=== PATIENT | female | born 1935 | race Caucasian/White ===

== ENCOUNTER 2019-12-09 17:27 | Emergency (ER) | payer MEDICARE, OTHER, SELFPAY ==
[2019-12-09] VITALS (7 sets, daily range): BP systolic 121–162; BP diastolic 56–94; PULSE 74–96; RESP 14–18; TEMP 36.5; O2SAT 87–97; BMI 25.4
--- NOTE | 2019-12-09 18:15 | W.ED.ABDPA2 ---
HPI - Abdominal Pain General: Chief Complaint: Abdominal Pain Stated Complaint: N/V Time Seen by Provider: 12/09/19 17:54 Source: patient Mode of arrival: ambulatory Limitations: no limitations History of Present Illness: MD elicited complaint: abdominal pain Onset (ago): week(s) (3) Pain Consistency: intermittent Location: Diffuse Severity: severe Quality: cramping Radiation: none Exacerbating factors: nothing Relieving factors: nothing Associated Symptoms: Reports GI cramping, diarrhea, fever(s), nausea and vomiting; Denies anorexia, belching, bloating, change in bowel habits, change in stool character, chills, coffee ground emesis, constipation, dyspepsia, dysuria, excessive flatus, heartburn, hematochezia, hematuria, hematemesis, fecal incontinence, loose stools, melena, poor appetite and syncope Review of Systems General: Reports: 10 or more systems reviewed and unremarkable except in HPI and below Const: Reports: fever(s); Denies: chills Eyes: Denies: change in vision or blurry vision ENMT: Denies: throat pain, enlarged tonsils, odynophagia, hoarseness, mouth pain or swelling of lips/tongue Card: Denies: syncope Resp: Denies: dyspnea, productive cough or non-productive cough GI: Reports: nausea, vomiting, diarrhea and GI cramping; Denies: hematemesis, coffee ground emesis, heartburn, constipation, bloating, belching, excessive flatus, fecal incontinence, change in bowel habits, change in stool character, hematochezia or melena : Denies: dysuria or hematuria Musc: Denies: neck pain, back pain or extremity swelling Skin/Breast: Denies: rash, pruritus or erythema Neuro: Denies: headache(s), numbness in extremities or weakness in extremities Endo: Denies: polyuria, polydipsia or tired all the time Physical Exam Const: COMMON NORMALS: no acute distress, average body habitus, patient oriented x3, no limitations, healthy appearing, alert and well nourished HENMT: COMMON NORMALS: normocephalic, atraumatic and moist oral mucous membranes HEAD & SCALP: normocephalic and atraumatic Eye: COMMON NORMALS: Equal, round and reactive pupils present, EOMs intact bilaterally, conjunctivae normal and no scleral icterus CONJUNCTIVA: Yes conjunctivae normal PUPIL: Yes Equal, round and reactive pupils present Neck/C-Spine: COMMON NORMALS: full ROM, supple, no meningeal signs, no JVD and No carotid bruits Resp: COMMON NORMALS: normal respiratory effort, No retractions, No use of accessory muscles, clear to auscultation bilaterally and percussion normal AUSCULTATION: clear to auscultation bilaterally PERCUSSION: percussion normal Cardio: COMMON NORMALS: no JVD, regular rate, regular rhythm, S1 normal heart sound present, S2 normal heart sound present, No gallops present (Cardio), No clicks present (Cardio), No murmurs present (Cardio), No rub (Cardio) and Peripheral pulses 2+ throughout RATE: regular rate RHYTHM: regular rhythm HEART SOUNDS: S1 normal heart sound present and S2 normal heart sound present PERIPHERAL PULSES: Peripheral pulses 2+ throughout GI: COMMON NORMALS: Normal to inspection, nondistended, normoactive bowel sounds present, Soft to palpation, non-tender, No hepatosplenomegaly present, no masses and no bruits PALPATION: Yes Soft to palpation and Yes No hepatosplenomegaly present Extremity: COMMON NORMALS: normal to inspection, full ROM, capillary refill normal, no calf tenderness and no pedal edema Neuro: COMMON NORMALS: patient oriented x3 SENSORIUM/ORIENTATION: Yes alert MENINGEAL SIGNS: Yes no meningeal signs Skin: COMMON NORMALS: no rashes or lesions noted, no wounds, turgor normal, no jaundice, no petechiae and no mottling GENERAL SKIN EXAM: no rashes or lesions noted and turgor normal Course ED course: Patient who presents to the ED with and vomiting. She was noted to be mildly dehydrated, have a UTI. Vomiting resolved with a single dose of intravenous ondansetron. She was given a dose of intravenous ceftriaxone for the UTI. She is discharged home with a prescription of Augmentin and ondansetron. She is to follow-up with her primary care Vital Signs: Vital signs: Vital Signs Temperature 97.7 F 12/09/19 17:37 Pulse Rate 92 12/09/19 21:31 Respiratory Rate 17 12/09/19 21:31 Blood Pressure 121/93 12/09/19 21:31 Pulse Oximetry 87 L 12/09/19 21:31 MDM - Abdominal Pain MDM Narrative: Medical decision making narrative: Patient with nausea and vomiting secondary to UTI. She is discharged home with oral antibiotics and antiemetics. She is not septic. She did not vomit throughout her ED stay. Lab Data: Labs: Lab Results 12/09/19 12/09/19 12/09/19 Range/Units 18:48 18:48 20:41 WBC 15.3 H (4.0-10.0) 10^3/ uL RBC 4.17 (4.1-5.3) 10^6/u L Hgb 12.5 (11.5-15.3) g/dL Hct 40.3 (37.0-47.0) % MCV 96.6 (81-99) fL MCH 30.0 (28.0-34.0) pg MCHC 31.0 (30.0-36.0) g/dL RDW 13.2 (12.1-15.1) % Plt Count 186 (130-400) 10^3/c mm MPV 13.6 H (7.4-10.4) fL Neut % (Auto) 89.5 % Lymph % (Auto) 3.9 % [place] % (Auto) 5.7 % Eos % (Auto) 0.1 % Baso % (Auto) 0.2 % Neut # (Auto) 13.66 H (1.8-7.7) 10^3/u L Lymph # (Auto) 0.6 L (0.8-4.8) 10^3/u L [place] # (Auto) 0.9 (0.2-0.9) 10^3/u L Eos # (Auto) 0.0 (0.0-0.8) 10^3/u L Baso # (Auto) 0.0 (0.0-0.1) 10^3/u L Nucleated RBC % (a uto) 0 % Nucleated RBCs # 0.0 /100WBC Sodium 133 L (136-145) mmol/L Potassium 3.6 (3.5-5.1) mmol/L Chloride 93 L (98-107) mmol/L Carbon Dioxide 27 (22-29) mmol/L Anion Gap 16.6 (5-19) BUN 24 H (8-23) mg/dL Creatinine 0.7 (0.5-0.9) mg/dL GFR Calculation Not Reportable Glucose 186 H (65-115) mg/dL Calculated Osmolal ity 285 (285-295) mOsm/k g Lactate (0.5-2.2) mmol/L Calcium 9.1 (8.5-10.5) mg/dL Total Bilirubin 0.3 (0.15-1.2) mg/dL AST 45 H (0-32) U/L ALT 46 H (0-33) U/L Alkaline Phosphata se 138 H (35-105) IU/L Creatine Kinase 221 H (26-192) U/L C-Reactive Protein 95.8 H (0.0-4.9) mg/L Total Protein 7.9 (6.6-8.7) g/dL Albumin 3.7 (3.5-5.2) g/dL Globulin 4.2 (1.3-4.6) g/dL Lipase 23 (13-60) U/L Urine Color Yellow (Yellow) Urine Appearance Sl cloudy A (CLEAR) Urine pH 5.0 (5-7) Ur Specific Gravit y 1.010 (1.005-1.030) Urine Protein Trace (Negative) Urine Glucose (UA) Norm (Normal) Urine Ketones Negative (Negative) Urine Blood Neg (Negative) Urine Nitrate Negative (Negative) Urine Bilirubin Neg (Negative) Urine Urobilinogen 1 H (Negative) mg/dL Ur Leukocyte Amanda ase 1+ H (Negative) Urine RBC 0-4 H (0-2) /hpf Urine WBC 10-15 H (0-5) /hpf Ur Squamous Epith Cells 5-10 H (0-5) /hpf Ur Transition Epit h Cell 0-4 /hpf Amorphous Sediment Not Reportable Urine Bacteria 2+ H (NONE) /hpf SARS-CoV-2 Ag (Rap id) (Negative) 12/09/19 12/09/19 Range/Units 21:18 21:40 WBC (4.0-10.0) 10^3/ uL RBC (4.1-5.3) 10^6/u L Hgb (11.5-15.3) g/dL Hct (37.0-47.0) % MCV (81-99) fL MCH (28.0-34.0) pg MCHC (30.0-36.0) g/dL RDW (12.1-15.1) % Plt Count (130-400) 10^3/c mm MPV (7.4-10.4) fL Neut % (Auto) % Lymph % (Auto) % [place] % (Auto) % Eos % (Auto) % Baso % (Auto) % Neut # (Auto) (1.8-7.7) 10^3/u L Lymph # (Auto) (0.8-4.8) 10^3/u L [place] # (Auto) (0.2-0.9) 10^3/u L Eos # (Auto) (0.0-0.8) 10^3/u L Baso # (Auto) (0.0-0.1) 10^3/u L Nucleated RBC % (a uto) % Nucleated RBCs # /100WBC Sodium (136-145) mmol/L Potassium (3.5-5.1) mmol/L Chloride (98-107) mmol/L Carbon Dioxide (22-29) mmol/L Anion Gap (5-19) BUN (8-23) mg/dL Creatinine (0.5-0.9) mg/dL GFR Calculation Glucose (65-115) mg/dL Calculated Osmolal ity (285-295) mOsm/k g Lactate 1.1 (0.5-2.2) mmol/L Calcium (8.5-10.5) mg/dL Total Bilirubin (0.15-1.2) mg/dL AST (0-32) U/L ALT (0-33) U/L Alkaline Phosphata se (35-105) IU/L Creatine Kinase (26-192) U/L C-Reactive Protein (0.0-4.9) mg/L Total Protein (6.6-8.7) g/dL Albumin (3.5-5.2) g/dL Globulin (1.3-4.6) g/dL Lipase (13-60) U/L Urine Color (Yellow) Urine Appearance (CLEAR) Urine pH (5-7) Ur Specific Gravit y (1.005-1.030) Urine Protein (Negative) Urine Glucose (UA) (Normal) Urine Ketones (Negative) Urine Blood (Negative) Urine Nitrate (Negative) Urine Bilirubin (Negative) Urine Urobilinogen (Negative) mg/dL Ur Leukocyte Amanda ase (Negative) Urine RBC (0-2) /hpf Urine WBC (0-5) /hpf Ur Squamous Epith Cells (0-5) /hpf Ur Transition Epit h Cell /hpf Amorphous Sediment Urine Bacteria (NONE) /hpf SARS-CoV-2 Ag (Rap id) Negative (Negative) Discharge Plan Discharge Patient Disposition: Home Clinical Impression: Acute UTI, Acute dehydration Nausea & vomiting Qualifiers: Vomiting type: unspecified Vomiting Intractability: non-intractable Qualified Code(s): R11.2 - Nausea with vomiting, unspecified Condition: Stable Prescriptions: New amoxicillin-pot clavulanate 500-125 mg tablet 1 tab PO BID Qty: 10 RF: 0 ondansetron HCl 4 mg tablet 4 mg PO Q8H PRN (Reason: nausea and vomiting) 5 Days Qty: 20 RF: 0 Discharge Orders: Discharge Order (Routine); Ordered 12/09/19 Ordered By: Chiki Hood Referrals: Clark Keen, [Family Provider] - 1-3 days Discharge Diet: Advance as tolerated and Usual diet Discharge Activity: Increase activity as tolerated Patient Instructions: Dehydration (ED), Urinary Tract Infection in Women (ED), Acute Nausea and Vomiting (ED) Activity Restrictions/Additional Instructions: Return for any new or worsening symptoms. Follow-up with your primary care provider within 3 days. Take the medication as prescribed. Coding Level of Care Code ED Rx Specialist for Parmjit Fwd Exam Comprehensive
[2019-12-09] MEDS: ondansetron 2 mg/ML SDV 2 mL 4 MG IVP (19:02)
[2019-12-09] MEDS: sodium chloride 0.9% 1,000 ML 999 ML IV (19:03)
[2019-12-09 19:18] LABS: Alanine Aminotransferase 46 U/L (0-33); Albumin Level 3.7 g/dL (3.5-5.2); Alkaline Phosphatase 138 IU/L (35-105); Anion Gap 16.6 (5-19); Aspartate Amino Transferase 45 U/L (0-32); Blood Urea Nitrogen 24 mg/dL (8-23); C Reactive Protein 95.8 mg/L (0.0-4.9); Calcium 9.1 mg/dL (8.5-10.5); Carbon Dioxide 27 mmol/L (22-29); Chloride 93 mmol/L (98-107); Creatine Phosphokinase 221 U/L (26-192); Globulin 4.2 g/dL (1.3-4.6); Glucose 186 mg/dL (65-115); Lipase 23 U/L (13-60); Osmolality Calculated 285 mOsm/kg (285-295); Potassium 3.6 mmol/L (3.5-5.1); Sodium 133 mmol/L (136-145); Total Bilirubin 0.3 mg/dL (0.15-1.2); Total Protein 7.9 g/dL (6.6-8.7)
[2019-12-09 19:26] LABS: Basophils % 0.2 %; Eosinophils % 0.1 %; Hematocrit 40.3 % (37.0-47.0); Hemoglobin 12.5 g/dL (11.5-15.3); Lymphocytes # 0.6 10^3/uL (0.8-4.8); Lymphocytes % 3.9 %; Mean Corpuscular Volume 96.6 fL (81-99); Mean Platelet Volume 13.6 fL (7.4-10.4); Monocytes # 0.9 10^3/uL (0.2-0.9); Monocytes % 5.7 %; Neutrophils # 13.66 10^3/uL (1.8-7.7); Neutrophils % 89.5 %; Nucleated Red Blood Cells % 0 %; Platelet Count 186 10^3/cmm (130-400); Red Blood Count 4.17 10^6/uL (4.1-5.3); Red Cell Distribution Width 13.2 % (12.1-15.1); White Blood Count 15.3 10^3/uL (4.0-10.0)
--- NOTE | 2019-12-09 19:30 | CTR_ITS ---
PROCEDURE INFORMATION: Exam: CT Abdomen And Pelvis With Contrast Exam date and time: 12/09/2019 7:32 PM Age: 84 years old Clinical indication: Nausea and vomiting; Abdominal pain; Additional info: Abdominal pain, nausea and vomiting TECHNIQUE: Imaging protocol: Computed tomography of the abdomen and pelvis with intravenous contrast. Radiation optimization: All CT scans at this facility use at least one of these dose optimization techniques: automated exposure control; mA and/or kV adjustment per patient size (includes targeted exams where dose is matched to clinical indication); or iterative reconstruction. Contrast material: OMNI 300; Contrast volume: 95 ml; Contrast route: INTRAVENOUS (IV); COMPARISON: No relevant prior studies available. RADIATION DOSE METRICS: Total DLP (mGy-cm): 575.93 FINDINGS: Lungs: There is subpleural atelectasis of the dependent portions of the lungs. Mediastinal space: A small hiatal hernia is present. Liver: A few small hypodensities are noted in the liver and are too small to characterize. There is a diffuse decrease in hepatic parenchymal density, consistent with fatty infiltration. Gallbladder and bile ducts: Normal. No calcified stones. No ductal dilation. Pancreas: Normal. No ductal dilation. Spleen: Normal. No splenomegaly. Adrenals: Normal. No mass. Kidneys and ureters: There is no evidence of hydronephrosis. There is no evidence of renal calcifications. Stomach and bowel: Moderate diverticulosis is present in the distal colon. There is no evidence of colitis/diverticulitis. There is no evidence of intestinal perforation or obstruction. The stomach is almost completely collapsed and is unremarkable. The loops of small bowel have an appropriate appearance. There is no evidence of colitis/diverticulitis. Appendix: No evidence of appendicitis. Intraperitoneal space: Unremarkable. No free air. No significant fluid collection. Vasculature: The aorta demonstrates mild atherosclerotic calcification. Lymph nodes: Unremarkable.No enlarged lymph nodes. Urinary bladder: There is nonspecific bladder wall thickening. This may be related to incomplete distention. Reproductive: Unremarkable as visualized. Bones/joints: Osteopenia and severe degenerative changes in the lower lumbar spine are noted. Soft tissues: There is a fat-containing umbilical hernia. CT/CT abdomen pelvis w con* [id number] IMPRESSION: No acute abnormality. No bowel thickening or inflammatory changes. Incidental findings are noted as above. Radiation Dose CTDIVOL = (mGy): DLP = 575.93 (mGy-cm)
[2019-12-09] MEDS: iohexol 300 mg/mL 100 mL Btl IV (20:03)
[2019-12-09 21:09] LABS: Glucose Urine UA Norm (Normal); Protein Urine Trace (Negative); Urine Color Yellow (Yellow)
[2019-12-09 21:10] LABS: Add Urine Microscopic? YES; Bilirubin Urine Neg (Negative); Blood Urine Neg (Negative); Ketones Urine Negative (Negative); Leukocyte Esterase Urine 1+ (Negative); Nitrate Urine Negative (Negative); RBC Urine 0-4 /hpf (0-2); Urobilinogen Urine 1 mg/dL (Negative)
[2019-12-09 21:11] LABS: Add Urine Culture? Yes; Bacteria Urine 2+ /hpf; Transitional Epi Cells Urine 0-4 /hpf
[2019-12-09] MEDS: cefTRIAXone 1,000 MG in sodium chloride 0.9% (plus) 50 ML 100 MG IV (21:29)
--- NOTE | 2019-12-09 21:36 | XR_ITS ---
WS: [id number] Portable AP upright chest, 12/09/2019 Clinical Data: hypoxia, vomiting Comparison: None. Findings: No nodules, masses or effusions are seen. The heart is slightly enlarged. The pulmonary vas cularity is not increased. No pneumonia or pneumothorax is seen. The aortic arch and descending aorta show tortuosity. There is an orthopedic anchor in the right humeral head. XR/XR chest 1V portable [id number] Impression: Atherosclerosis and cardiomegaly.
[2019-12-09 21:43] LABS: Lactate (Lactic Acid level) 1.1 mmol/L (0.5-2.2)
[2019-12-09 22:16] LABS: SARS Covid-2 Antigen Negative (Negative)
[2019-12-10 00:02] VITALS: BP 146/85; PULSE 96; RESP 18; O2SAT 91
[2019-12-10 00:31] VITALS: BP 146/72; PULSE 96; RESP 18; TEMP 36.7; O2SAT 92
== END 2019-12-10 00:34 | disposition home or self-care (01) ==
PROVIDERS: Emergency Provider Family Medicine; Family Provider Electrodiagnostic Medicine
DX: N39.0 Urinary tract infection, site not specified (principal); R11.2 Nausea with vomiting, unspecified; E86.0 Dehydration
CPT/HCPCS: 12345; 71045; 74177; 80053; 81001; 82550; 83605; 83690; 85025; 86140; 87077; 87086; 87186; 87426; 96365; 96375; 99284; J0696; J2405; J7030; Q9967

== ENCOUNTER → 2020-05-24 10:51 | Outpatient (BNVA) | payer MEDICARE, OTHER, SELFPAY | PROVIDERS: Family Provider Electrodiagnostic Medicine; Visit Provider Family Medicine | DX: K92.1 Melena (principal); I10 Essential (primary) hypertension; I48.11 Longstanding persistent atrial fibrillation; M54.5 Low back pain; D64.9 Anemia, unspecified | CPT/HCPCS: 80053; 85025 ==

== ENCOUNTER → 2020-06-12 09:56 | Outpatient (BNVA) | payer MEDICARE, OTHER, SELFPAY | PROVIDERS: Family Provider Electrodiagnostic Medicine; Visit Provider Family Medicine | DX: D50.0 Iron deficiency anemia secondary to blood loss (chronic) (principal); K92.1 Melena; R11.2 Nausea with vomiting, unspecified; D69.9 Hemorrhagic condition, unspecified | CPT/HCPCS: 85025 ==